=== PATIENT | female | born 1990 | race African-American/Black ===

== ENCOUNTER 2020-07-07 16:30 | Outpatient (REF) | payer OTHER, SELFPAY | END 2020-07-07 16:31 | disposition home or self-care (01) | LOC: HO.LAB 16:30 | PROVIDERS: Visit Provider Internal Medicine | DX: Z20.828 Contact with and (suspected) exposure to other viral communicable diseases (principal) | CPT/HCPCS: 87635 ==

== ENCOUNTER 2021-04-27 15:39 | Outpatient (REF) | payer OTHER, SELFPAY | END 2021-04-27 15:40 | disposition home or self-care (01) | LOC: HO.LAB 15:39 | PROVIDERS: Visit Provider Internal Medicine | DX: Z20.822 Contact with and (suspected) exposure to COVID-19 (principal) | CPT/HCPCS: C9803; U0003; U0005 ==